=== PATIENT | female | born 1970 | race Caucasian/White ===

== ENCOUNTER → 2016-12-18 | Outpatient (REF) | payer OTHER ==
[2016-12-18 14:33] LABS: PERCENT SATURATION 18.2 % (13.2-45.0)
== END ==
LOC: M LAB REF 08:40
PROVIDERS: ATTEND Internal Medicine
DX: D50.9 Iron deficiency anemia, unspecified (principal); N92.4 Excessive bleeding in the premenopausal period

== ENCOUNTER → 2016-12-19 | Outpatient (CLI) | payer OTHER ==
--- NOTE | 2016-12-20 14:31 | REP ---
Clinical: Menorrhagia . Technique: Transabdominal pelvic ultrasound followed by transvaginal examination for better evaluation of the endometrium and adnexa with color Doppler evaluation of the ovaries. Findings: Bladder is unremarkable and measures 8.4 x 5.5 x 5.7 cm . Heterogeneous anteverted uterus measures 8.9 x 3.9 x 5.0 cm . The endometrial complex measures 8.8 mm thickness. No discrete uterine or endometrial abnormalities are appreciated. Left ovary is normal in appearance and vascularity without evidence for torsion and measures 2.1 x 2.0 x 1.0 cm; RI = 0.50. The right ovary is not visualized. No pelvic fluid or adnexal mass lesion noted. Impression: 1. Normal appearance to the uterus and left ovary. 2. Right ovary not visualized. 3. No pelvic fluid or adnexal mass lesion. Signed by Sudhir Bailey MD 12/19/2016 10:45 P
== END ==
LOC: M RAD 10:23
PROVIDERS: ATTEND Internal Medicine
DX: N92.0 Excessive and frequent menstruation with regular cycle (principal)

== ENCOUNTER 2018-02-16 12:34 | Emergency (ER) | payer OTHER ==
[2018-02-16] MEDS: ONDANSETRON 4 MG ORAL DISINTEGRATING TAB (Q0162 PER 1MG) PO (15:13)
[2018-02-16] MEDS: NORCO, ANEXSIA 5/325MG TABLET (HYDROcodone/ACETAMINOPHEN) PO (15:14)
== END 2018-02-16 16:57 | disposition home or self-care (01) ==
LOC: M ED 12:34
DX: S22.42XA Multiple fractures of ribs, left side, initial encounter for closed fracture (principal); R11.2 Nausea with vomiting, unspecified; W18.09XA Striking against other object with subsequent fall, initial encounter; Y92.098 Other place in other non-institutional residence as the place of occurrence of the external cause; Y93.K9 Activity, other involving animal care; Y99.9 Unspecified external cause status; D64.9 Anemia, unspecified; Z72.0 Tobacco use; Z79.899 Other long term (current) drug therapy
CPT/HCPCS: Q0162

== ENCOUNTER → 2018-02-16 | Outpatient (CLI) | payer OTHER | LOC: M RAD 08:13 | DX: Z12.31 Encounter for screening mammogram for malignant neoplasm of breast (principal) | CPT/HCPCS: 77067 ==

== ENCOUNTER → 2018-04-15 | Outpatient (CLI) | payer OTHER ==
[~2018-04-15] MED LIST: FERR32TA PO; FLUO20CA19 PO; IBUP-1022 PO; NORCOTAB PO; ZOFR4TAB14 PO
[2018-04-15 10:21] LABS: BASO # 0.1 10^3/uL (0.0-0.2); BASO % 1.2 % (0.0-1.0); EOS # 0.4 10^3/uL (0.0-0.50); EOS % 7.4 % (0.0-3.0); HEMATOCRIT 42.1 % (36.0-47.0); LYMPH # 1.3 10^3/uL (1.5-4.5); LYMPH % 25.2 % (24.0-44.0); MEAN CORPUSCULAR HEMOGLOBIN 26.8 pg (27.0-33.0); MEAN CORPUSCULAR HGB CONC 33.3 g/dl (32.0-36.5); MEAN CORPUSCULAR VOLUME 80.7 fl (80.0-96.0); MONO # 0.3 10^3/uL (0.0-0.8); MONO % 6.6 % (0.0-5.0); PLATELET COUNT, AUTOMATED 272 10^3/uL (150-450); RED BLOOD COUNT 5.22 10^6/uL (4.00-5.40)
[2018-04-15 10:37] LABS: BLOOD UREA NITROGEN 15 MG/DL (7-18); CALCIUM LEVEL 8.7 MG/DL (8.5-10.1); CARBON DIOXIDE LEVEL 28 MEQ/L (21-32); CHLORIDE LEVEL 105 MEQ/L (98-107); CHOLESTEROL LEVEL 220 MG/DL (<200); CHOLESTEROL RISK RATIO 3.793 (<5); CREATININE FOR GFR 0.68 MG/DL (0.55-1.30); FERRITIN 26 NG/ML (8-252); GLOMERULAR FILTRATION RATE > 60.0 (>58); GLUCOSE, FASTING 95 MG/DL (70-100); HDL CHOLESTEROL 58 MG/DL (>40); IRON (FE) 49 UG/DL (50-170); LDL CHOLESTEROL 148 MG/DL (<100); NON-HDL-C 162 MG/DL; PERCENT SATURATION 18.6 % (13.2-45.0); POTASSIUM SERUM 4.7 MEQ/L (3.5-5.1); SODIUM LEVEL 139 MEQ/L (136-145); TOTAL IRON BINDING CAPACITY 264 UG/DL (250-450); TRIGLYCERIDES LEVEL 71 MG/DL (<150)
== END ==
LOC: M WUC 08:48
PROVIDERS: ATTEND Physician Assistant
DX: D50.9 Iron deficiency anemia, unspecified (principal); R53.83 Other fatigue

== ENCOUNTER → 2018-07-23 | Outpatient (CLI) | payer OTHER ==
[~2018-07-23] MED LIST changes: +HYDR-3715 PO; -NORCOTAB PO
--- NOTE | 2018-07-23 16:40 | REP ---
MAXILLOFACIAL CT WITHOUT CONTRAST: HISTORY: Chronic maxillary sinusitis. Bilateral Osmel cells are present. The patient is status post bilateral partial middle nasal turbinectomy. The middle and inferior nasal turbinates are partially paradoxical. There is mild deviation of the nasal septum to the left. The cribriform plate, medial cabrera of the orbits and optic canals are intact. The carotid canals form a segment of the posterolateral cabrera of the sphenoid sinus. The sphenoid sinus septum inserts into the right internal carotid canal wall. IMPRESSION: 1. Sinus mucosal thickening as described above. 2. The patient is status post bilateral partial middle nasal turbinectomy. Electronically Signed by John Enriquez MD 07/23/2018 04:42 P
== END ==
LOC: M RAD 16:04
PROVIDERS: ATTEND Otolaryngology
DX: J32.0 Chronic maxillary sinusitis (principal); Z98.890 Other specified postprocedural states

== ENCOUNTER → 2018-10-13 | Outpatient (REF) | payer OTHER | LOC: M LAB REF 10:11 | PROVIDERS: ATTEND Physician Assistant | DX: J02.9 Acute pharyngitis, unspecified (principal) ==

== ENCOUNTER → 2019-03-06 | Outpatient (CLI) | payer OTHER ==
[2019-03-06 13:11] LABS: BASO # 0.1 10^3/uL (0.0-0.2); BASO % 1.1 % (0.0-1.0); EOS # 0.3 10^3/uL (0.0-0.5); EOS % 6.1 % (0.0-3.0); HEMATOCRIT 42.3 % (36.0-47.0); HEMOGLOBIN 13.9 g/dl (12.0-15.5); LYMPH # 1.2 10^3/uL (1.5-5.0); MEAN CORPUSCULAR HEMOGLOBIN 27.3 pg (27.0-33.0); MEAN CORPUSCULAR HGB CONC 32.9 g/dl (32.0-36.5); MEAN CORPUSCULAR VOLUME 82.9 fl (80.0-96.0); MONO # 0.3 10^3/uL (0.0-0.8); MONO % 7.2 % (0.0-5.0); NEUTROPHILS # 2.7 10^3/uL (1.5-8.5); NEUTROPHILS % 57.9 % (36.0-66.0); PLATELET COUNT, AUTOMATED 245 10^3/uL (150-450); WHITE BLOOD COUNT 4.6 10^3/uL (4.0-10.0)
[2019-03-06 13:28] LABS: ALT/SGPT 20 U/L (12-78); BLOOD UREA NITROGEN 13 MG/DL (7-18); CALCIUM LEVEL 8.8 MG/DL (8.5-10.1); CARBON DIOXIDE LEVEL 31 MEQ/L (21-32); CHLORIDE LEVEL 106 MEQ/L (98-107); CREATININE FOR GFR 0.65 MG/DL (0.55-1.30); GLOMERULAR FILTRATION RATE > 60.0 (>51); GLUCOSE, FASTING 79 MG/DL (70-100); POTASSIUM SERUM 4.5 MEQ/L (3.5-5.1); SODIUM LEVEL 141 MEQ/L (136-145)
[2019-03-06 13:29] LABS: ALBUMIN 3.7 GM/DL (3.2-5.2); BILIRUBIN,TOTAL 0.9 MG/DL (0.2-1.0); FERRITIN 29 NG/ML (8-252); IRON (FE) 74 UG/DL (50-170); PERCENT SATURATION 27.9 % (13.2-45.0); THYROID STIMULATING HORMONE 0.932 uIU/ML (0.358-3.740); TOTAL IRON BINDING CAPACITY 265 UG/DL (250-450); TOTAL PROTEIN 6.7 GM/DL (6.4-8.2)
[2019-03-08 10:45] LABS: FOLATE 19.1 NG/ML; VITAMIN B12 LEVEL 379 PG/ML
== END ==
LOC: M WUC 08:02
PROVIDERS: ATTEND Physician Assistant
DX: R53.83 Other fatigue (principal); D50.9 Iron deficiency anemia, unspecified

== ENCOUNTER → 2019-03-17 | Outpatient (CLI) | payer OTHER ==
--- NOTE | 2019-03-17 09:15 | REPMRS ---
Patient History The patient states she had a clinical breast exam in 2018. Family history of unknown cancer at age 60 in mother, prostate cancer at age 50 or over in father, breast cancer at age 50 or over in maternal grandmother. Took hormonal contraceptives for 15 years. 3D TOMOSYNTHESIS WAS PERFORMED. The Nataliia Flores lifetime risk for breast cancer is 19.0%. Digital Mammo Screening Bilat: March 17, 2019 - Exam #: [id number] Bilateral CC and MLO view(s) were taken. Technologist: Liliana Prabhakar, Technologist Prior study comparison: February 16, 2018, bilateral digital mammo screening bilat performed at [facility]. February 12, 2017, bilateral digital mammo screening bilat performed at [facility]. FINDINGS: The breast tissue is heterogeneously dense. This may lower the sensitivity of mammography. There has been no change in the appearance of the mammogram from the prior studies. There is a moderate amount of residual fibroglandular tissue which is fairly symmetric. There is no interval development of dominant mass, areas of architectural distortion, or clustered microcalcification typical of malignancy. Assessment: BI-RADS/ACR category 1 mammogram. Negative Mammogram. Recommendation Routine screening mammogram in 1 year (for women over age 40). This mammogram was interpreted with the aid of an FDA-approved computer-aided dectection system. Electronically Signed By: Arnol Henning MD 03/17/19 0915
== END ==
LOC: M RAD 08:28
PROVIDERS: ATTEND Physician Assistant
DX: Z12.31 Encounter for screening mammogram for malignant neoplasm of breast (principal); Z80.3 Family history of malignant neoplasm of breast

== ENCOUNTER 2019-11-17 11:40 | Day surgery (SDC) | payer OTHER ==
[~2019-11-17 11:40] MED LIST changes: -FLUO20CA19 PO; +FLUO20CA22 PO
[2019-11-17] MEDS ORDERED: propofoL 500 MG/50 ML VIAL ONE (11:41)
--- NOTE | 2019-12-29 11:26 | ROOR ---
Patient Name: Abby Youssef Procedure Date: 11/17/2019 12:10 PM Date of : 1970 Age: 49 Room: [facility] Gender: Female Note Status: [employer] Override Procedure: Total Colonoscopy to Cecum + Biopsy Polypectomy Indications: Screening for colorectal malignant neoplasm Providers: Yan Wan MD Referring MD: CLEMENCIA Lanza Requesting Provider: Medicines: Monitored Anesthesia Care Complications: No immediate complications. Procedure: Pre-Anesthesia Assessment: - The heart rate, respiratory rate, oxygen saturations, blood pressure, adequacy of pulmonary ventilation, and response to care were monitored throughout the procedure. The Colonoscope was introduced through the anus and advanced to the cecum, identified by appendiceal orifice and ileocecal valve. The colonoscopy was performed without difficulty. The patient tolerated the procedure well. The quality of the bowel preparation was excellent. Findings: The perianal and digital rectal examinations were normal. Non-bleeding internal hemorrhoids were found during retroflexion. The hemorrhoids were small and Grade I (internal hemorrhoids that do not prolapse). Scattered small-mouthed diverticula were found in the recto-sigmoid colon, sigmoid colon and descending colon. A small polyp was found in the rectum. The polyp was sessile. The polyp was removed with a cold biopsy forceps. Resection and retrieval were complete. The exam was otherwise without abnormality on direct and retroflexion views. Impression: - Non-bleeding internal hemorrhoids. - Diverticulosis in the recto-sigmoid colon, in the sigmoid colon and in the descending colon. - One small polyp in the rectum, removed with a cold biopsy forceps. Resected and retrieved. - The examination was otherwise normal on direct and retroflexion views. - The exam was otherwise normal to the cecum. Recommendation: - Patient has a contact number available for emergencies. The signs and symptoms of potential delayed complications were discussed with the patient. Return to normal activities tomorrow. Written discharge instructions were provided to the patient. - Discharge patient to home. - High fiber diet. - Await pathology results. - Telephone GI clinic for pathology results in 1 week. - Repeat colonoscopy in 10 years for screening purposes. - Return to referring physician. - Continue present medications. - The findings and recommendations were discussed with the patient. Yan Wan MD Yan Wan MD 11/17/2019 12:28:25 PM Number of Addenda: 0 Note Initiated On: 11/17/2019 12:10 PM Estimated Blood Loss: Estimated blood loss: none.
== END 2019-11-17 13:05 | disposition home or self-care (01) ==
LOC: M OPP 11:40
PROVIDERS: ATTEND Internal Medicine Gastroenterology
DX: Z12.11 Encounter for screening for malignant neoplasm of colon (principal); K64.0 First degree hemorrhoids; K62.1 Rectal polyp; K57.30 Diverticulosis of large intestine without perforation or abscess without bleeding
CPT/HCPCS: 45380; 88305; U0002

== ENCOUNTER → 2020-02-27 | Outpatient (CLI) | payer OTHER ==
[2020-02-27 12:23] LABS: BASO # 0.1 10^3/uL (0.0-0.2); BASO % 1.4 % (0.0-1.0); EOS # 0.4 10^3/uL (0.0-0.5); EOS % 9.3 % (0.0-3.0); HEMOGLOBIN 13.6 g/dl (12.0-15.5); LYMPH % 23.8 % (24.0-44.0); MEAN CORPUSCULAR HEMOGLOBIN 26.3 pg (27.0-33.0); MEAN CORPUSCULAR HGB CONC 31.6 g/dl (32.0-36.5); MEAN CORPUSCULAR VOLUME 83.2 fl (80.0-96.0); MONO # 0.4 10^3/uL (0.0-0.8); MONO % 8.3 % (0.0-5.0); NEUTROPHILS # 2.5 10^3/uL (1.5-8.5); NEUTROPHILS % 56.7 % (36.0-66.0); PLATELET COUNT, AUTOMATED 267 10^3/uL (150-450); RED BLOOD COUNT 5.17 10^6/uL (4.00-5.40); WHITE BLOOD COUNT 4.3 10^3/uL (4.0-10.0)
[2020-02-27 12:53] LABS: BLOOD UREA NITROGEN 13 MG/DL (7-18); CREATININE FOR GFR 0.76 MG/DL (0.55-1.30); GLUCOSE, FASTING 83 MG/DL (70-100)
[2020-02-27 12:54] LABS: ALBUMIN 3.9 GM/DL (3.2-5.2); ALT/SGPT 18 U/L (12-78); BILIRUBIN,TOTAL 0.8 MG/DL (0.2-1.0); CALCIUM LEVEL 8.8 MG/DL (8.5-10.1); CARBON DIOXIDE LEVEL 31 MEQ/L (21-32); CHLORIDE LEVEL 106 MEQ/L (98-107); FERRITIN 59 NG/ML (8-252); GLOMERULAR FILTRATION RATE > 60.0 (>51); IRON (FE) 65 UG/DL (50-170); PERCENT SATURATION 24.7 % (13.2-45.0); POTASSIUM SERUM 4.6 MEQ/L (3.5-5.1); SODIUM LEVEL 139 MEQ/L (136-145); THYROID STIMULATING HORMONE 0.594 uIU/ML (0.358-3.740); TOTAL IRON BINDING CAPACITY 263 UG/DL (250-450); TOTAL PROTEIN 6.5 GM/DL (6.4-8.2)
[2020-02-28 10:13] LABS: VITAMIN B12 LEVEL 427 PG/ML
[2020-02-28 10:14] LABS: FOLATE 18.1 NG/ML
== END ==
LOC: M WUC 08:11
PROVIDERS: ATTEND Family Medicine
DX: R53.83 Other fatigue (principal); D50.9 Iron deficiency anemia, unspecified

== ENCOUNTER 2020-03-09 16:18 | Day surgery (SDC) | payer OTHER ==
[~2020-03-09] VITALS: Ht 162.6 cm; Wt 93.2 kg
[2020-03-09] MEDS ORDERED: KETOROLAC 30 MG/ML 1ML VIAL IV ONE (18:45)
[2020-03-09] MEDS ORDERED: ONDANSETRON 4MG/2ML VIAL IV ONE (18:45)
[2020-03-09 18:46] LABS: BASO # 0.1 10^3/uL (0.0-0.2); BASO % 0.5 % (0.0-1.0); EOS # 0.2 10^3/uL (0.0-0.5); EOS % 1.3 % (0.0-3.0); HEMATOCRIT 43.8 % (36.0-47.0); HEMOGLOBIN 14.9 g/dl (12.0-15.5); LYMPH # 1.1 10^3/uL (1.5-5.0); LYMPH % 8.9 % (24.0-44.0); MEAN CORPUSCULAR HEMOGLOBIN 27.5 pg (27.0-33.0); MONO # 0.6 10^3/uL (0.0-0.8); MONO % 4.7 % (0.0-5.0); NEUTROPHILS % 84.1 % (36.0-66.0); PLATELET COUNT, AUTOMATED 302 10^3/uL (150-450); RED BLOOD COUNT 5.41 10^6/uL (4.00-5.40); WHITE BLOOD COUNT 11.9 10^3/uL (4.0-10.0)
[2020-03-09 19:05] LABS: ALBUMIN 4.4 GM/DL (3.2-5.2); ALT/SGPT 18 U/L (12-78); BILIRUBIN,DIRECT 0.3 MG/DL (0.0-0.2); BILIRUBIN,TOTAL 1.2 MG/DL (0.2-1.0); BLOOD UREA NITROGEN 12 MG/DL (7-18); CALCIUM LEVEL 9.3 MG/DL (8.5-10.1); CARBON DIOXIDE LEVEL 28 MEQ/L (21-32); CHLORIDE LEVEL 101 MEQ/L (98-107); CREATININE FOR GFR 0.71 MG/DL (0.55-1.30); GLOMERULAR FILTRATION RATE > 60.0 (>51); GLUCOSE, FASTING 95 MG/DL (70-100); LIPASE 82 U/L (73-393); POTASSIUM SERUM 4.2 MEQ/L (3.5-5.1); SODIUM LEVEL 134 MEQ/L (136-145); TOTAL PROTEIN 7.5 GM/DL (6.4-8.2)
--- NOTE | 2020-03-09 20:04 | REPVR ---
PROCEDURE INFORMATION: Exam: US Abdomen, Limited; Right Upper Quadrant Exam date and time: 03/09/2020 7:26 PM Age: 49 years old Clinical indication: Abdominal pain; Epigastric; Additional info: Ruq pain TECHNIQUE: Imaging protocol: US abdomen. Real time ultrasound with image documentation. Limited exam focused on the right upper quadrant. COMPARISON: No relevant prior studies available. FINDINGS: Liver: There is uniform echogenicity of the liver. There is a small cyst of the liver measuring approximately 1 cm. Gallbladder: The gallbladder is fluid filled with no definite evidence of gallstones. There is a tiny echogenic focus along the anterior aspect of the gallbladder consistent with a tiny cholesterol polyp. The gallbladder wall measures 3 mm. Common bile duct: The common bile duct is normal in size measuring 5 mm. Pancreas: The head and body of the pancreas do not appear enlarged. The tail of the pancreas is obscured by bowel gas. Right kidney: The right kidney measures 11.6 cm in length with no evidence of hydronephrosis. IMPRESSION: No evidence of gallstones. Electronically signed by: Zay Reyna On 03/09/2020 20:03:44 PM
[2020-03-09] MEDS ORDERED: ISOVUE-370 76% 100ML VIAL As Ordered ONE (20:38)
--- NOTE | 2020-03-09 21:36 | REPVR ---
PROCEDURE INFORMATION: Exam: CT Abdomen And Pelvis With Contrast Exam date and time: 03/09/2020 9:04 PM Age: 49 years old Clinical indication: Abdominal pain; Localized; Right upper quadrant (ruq); Additional info: Ruq pain TECHNIQUE: Imaging protocol: Computed tomography of the abdomen and pelvis with intravenous contrast. Radiation optimization: All CT scans at this facility use at least one of these dose optimization techniques: automated exposure control; mA and/or kV adjustment per patient size (includes targeted exams where dose is matched to clinical indication); or iterative reconstruction. Contrast material: ISOVUE 370; Contrast volume: 100 ml; Contrast route: INTRAVENOUS (IV); COMPARISON: US PELVIC NON-OB COMPLETE 12/19/2016 10:31 AM FINDINGS: Lungs: The lung bases appear clear. Liver: There is a small cyst right lobe of the liver. There is uniform enhancement through the liver. Gallbladder and bile ducts: Normal gallbladder. Normal common bile duct. Pancreas: Normal pancreas. Spleen: Normal appearing spleen. Adrenal glands: Normal adrenal glands. Kidneys and ureters: There is enhancement of both kidneys. There is no evidence of hydronephrosis. Stomach and bowel: The cecum is at the right pelvis. The appendix is posterolateral in position and severely thickened. There is a prominent amount of inflammation surrounding the appendix and all consistent with acute changes of appendicitis. There are diverticula of the right colon abutting the area of inflammation. Intraperitoneal space: There is no evidence of pneumoperitoneum. There is no evidence of free fluid in the abdomen or the pelvis. Vasculature: There is opacification of the aorta which appears intact. There is opacification of the SMV and the SMA. Lymph nodes: There are small lymph nodes along the course of the aorta. Urinary bladder: Normal urinary bladder. Reproductive: There is an IUD within the uterus. Bones/joints: Unremarkable. No acute fracture. Soft tissues: There is a small umbilical hernia with protrusion of 2.5 cm of mesenteric fat. IMPRESSION: 1. The study is positive for acute appendicitis. The cecum and appendix is in the upper right pelvis. A thickened appendix is identified posterolateral to the cecum with significant surrounding inflammation and all consistent with acute changes appendicitis. 2. Small umbilical hernia with mesenteric fat. Electronically signed by: Zay Reyna On 03/09/2020 21:36:39 PM
[2020-03-09] MEDS ORDERED: NS 1,000 ML IV ONE (22:00)
[2020-03-09] MEDS ORDERED: PIPERACILLIN/TAZOBACTAM SOD 3.375 GM in D5W MINI-BAG PLUS 50 ML IV ONE (22:00)
[2020-03-09] MEDS ORDERED: FLUO20CA22 PO (22:09)
[2020-03-09] MEDS ORDERED: VITMTA PO (22:09)
[2020-03-09] MEDS ORDERED: IBUP-1764 PO (22:09)
[2020-03-09] MEDS ORDERED: FERR325T3 PO (22:09)
[2020-03-09] MEDS ORDERED: MIDAZOLAM INJ 2MG/2ML VIAL (J2250 PER 1MG) As Ordered ONE (23:42)
[2020-03-09] MEDS ORDERED: fentaNYL 100 MCG/2 ML INJECTION (J3010) As Ordered ONE (23:42)
[2020-03-09] MEDS ORDERED: LIDOCAINE 2% 100MG/5ML SDV (FOR ANES.) As Ordered ONE (23:44)
[2020-03-09] MEDS ORDERED: SUGAMMADEX SODIUM 500 MG/5 ML VIAL (BRIDION) As Ordered ONE (23:44)
[2020-03-09] MEDS ORDERED: propofoL 200 MG/20 ML VIAL As Ordered ONE (23:44)
[2020-03-09] MEDS ORDERED: ONDANSETRON 4MG/2ML VIAL As Ordered ONE (23:44)
[2020-03-09] MEDS ORDERED: dexameTHASONE 4 MG/ML 1ML VIAL (J1100 PER 1MG) As Ordered ONE (23:44)
[2020-03-09] MEDS ORDERED: ROCURONIUM BROMIDE 50 MG/5 ML VIAL As Ordered ONE (23:44)
[2020-03-10] VITALS (8 sets, daily range): BP systolic 111–142; BP diastolic 68–84
[2020-03-10] MEDS ORDERED: PHENYLephrine HCL 500 MCG/5 ML (100MCG/ML) SYRINGE (J2370) As Ordered ONE (00:20)
[2020-03-10] MEDS ORDERED: ACETAMINOPHEN 1000MG 100ML IV BTL (OFIRMEV) (J0131 PER 10MG) As Ordered ONE (00:20)
[2020-03-10] MEDS ORDERED: ePHEDrine SULFATE 25 MG/5 ML(5MG/ML) SYRINGE As Ordered ONE (00:20)
[2020-03-10] MEDS ORDERED: LIDOCAINE W/EPINEPHRINE 1% 20ML VIAL As Ordered ONE (00:26)
[2020-03-10] MEDS ORDERED: BUPIVACAINE HCL 0.25% 30ML VIAL As Ordered ONE (00:26)
[2020-03-10] MEDS ORDERED: NS 1,000 ML IV SCH (01:25)
[2020-03-10] MEDS ORDERED: MORPHINE 2 MG/ML 1ML VIAL (J2270) IV PRN ×2 (01:30)
[2020-03-10] MEDS ORDERED: NORCO, ANEXSIA 5/325MG TABLET (HYDROcodone/ACETAMINOPHEN) PO PRN ×2 (01:30)
[2020-03-10] MEDS ORDERED: ONDANSETRON 4MG/2ML VIAL IV PRN ×2 (01:30→01:45)
[2020-03-10] MEDS: fentaNYL 100 MCG/2 ML INJECTION (J3010) IV PRN ×4 (01:43→01:59)
[2020-03-10] MEDS: KETOROLAC 30 MG/ML 1ML VIAL IV SCH ×3 (01:44→13:46)
[2020-03-10] MEDS ORDERED: MEPERIDINE INJ 25 MG/ML VIAL (J2175) IV PRN (01:45)
[2020-03-10] MEDS ORDERED: LR 1,000 ML IV SCH (01:45)
[2020-03-10] MEDS ORDERED: oxyCODONE 5MG TAB PO PRN (01:45)
[2020-03-10] MEDS ORDERED: METOCLOPRAMIDE INJ 10MG/2ML VIAL (J2765 PER 1) IV PRN (01:45)
[2020-03-10] MEDS: PIPERACILLIN/TAZOBACTAM SOD 3.375 GM in D5W MINI-BAG PLUS 50 ML IV SCH ×2 (05:13→12:38)
[2020-03-10] MEDS ORDERED: FLUoxetine 20 MG CAP PO SCH (09:00)
--- NOTE | 2020-04-17 08:58 | RO ---
OPERATIVE NOTE DATE OF OPERATION: 03/09/2020 PREOPERATIVE DIAGNOSIS: Acute appendicitis. POSTOPERATIVE DIAGNOSES: 1. Acute appendicitis. 2. Umbilical hernia. PROCEDURES: 1. Laparoscopic appendectomy. 2. Umbilical hernia repair. SURGEON: Rigoberto Dorantes Jr, MD ANESTHESIA: General endotracheal anesthesia. EBL: Minimal. FLUIDS: Crystalloid. BRIEF PROCEDURE SUMMARY: The patient was brought to the operating room and was given general anesthesia. After adequate anesthesia and preoperative antibiotics were given, the patient was prepped and draped in usual sterile fashion. Periumbilical incision was made with skin knife. There was an umbilical hernia present and using this site I did go down to the fascial level at the umbilicus and the hernia was transected at the level of the fascia and the preperitoneal fat was removed in this area. 12 mm trocar was placed into the abdominal cavity with blunt end in and it fit quite nicely in this fascial defect and the abdomen was insufflated to 15 mmHg. Suprapubic and left lower quadrant 5 mm trocars were placed and under direct visualization the appendix was seen with the patient in the Trendelenburg position left side down. The mesentery of the appendix was taken with the Harmonic scalpel all the way to the base of the appendix/cecal wall. Once this was nicely dissected out the base of the appendix/cecum was transected using JEAN PAUL stapler. This was placed in an Endo Catch bag and brought out through the umbilicus. The right lower quadrant pelvis was copiously irrigated until clear. All trocars were removed under direct visualization. #0 Vicryl was used to close the fascia at the umbilicus with two [id number] #0 Vicryl to bring this together this fascial defect at the hernia site and the dermis was brought together with 4-0 Vicryl, subcuticulars were placed in all three incisions, Steri-Strips and dry, sterile dressing was applied. The patient was awakened from her anesthesia and brought to the recovery room awake, alert and hemodynamically stable. Sponge and needle counts correct x2.
== END 2020-03-10 13:58 | disposition home or self-care (01) ==
LOC: M ED 16:18 → M SDC 16:19 → M MSPAV 03-10 02:04 → M SDC 03-10 13:58
PROVIDERS: ATTEND Surgery
DX: K35.80 Unspecified acute appendicitis (principal); K42.9 Umbilical hernia without obstruction or gangrene; M12.9 Arthropathy, unspecified
CPT/HCPCS: 44970; 49585; 74177; 76705; 80048; 80076; 83690; 85025; 88302; 88304; 96365; 96366; 96375; 96376; 99284; J0131; J1100; J1885; J2250; J2370; J2405; J2543; J3010; Q9967; U0002

== ENCOUNTER → 2020-03-23 | Outpatient (CLI) | payer OTHER ==
[~2020-03-23] MED LIST changes: +FERR325T3 PO; +IBUP-1764 PO; +VITMTA PO
--- NOTE | 2020-03-23 12:59 | REPMRS ---
Patient History The patient states she had a clinical breast exam in October 2019. Family history of unknown cancer at age 60 in mother, prostate cancer at age 50 or over in father, breast cancer at age 50 or over in maternal grandmother. Took hormonal contraceptives for 15 years. Digital Woman Screen Mammo: March 23, 2020 - Exam #: [id number] Bilateral CC and MLO view(s) were taken. Technologist: Liliana Prabhakar, Technologist Prior study comparison: March 17, 2019, bilateral digital mammo screening bilat, performed at [facility]. February 16, 2018, bilateral digital mammo screening bilat, performed at [facility]. February 12, 2017, bilateral digital mammo screening bilat, performed at [facility]. FINDINGS: There are scattered fibroglandular densities. The Volpara volumetric breast density category is:B. There has been no change in the appearance of the mammogram from the prior studies. There is a mild amount of scattered fibroglandular density which is fairly symmetric. There is no interval development of dominant mass, architectural distortion, or grouped microcalcification suggestive of malignancy. 3-D tomosynthesis shows no additional findings. Assessment: BI-RADS/ACR category 1 mammogram. Negative Mammogram. Recommendation Routine screening mammogram of both breasts in 1 year (for women over age 40). This patient's [facility] Lifetime Breast Cancer Risk is estimated at 18.6 %. This mammogram was interpreted with the aid of an FDA-approved computer-aided dectection system. Electronically Signed By: Luigi Joshua MD 03/23/20 8422
== END ==
LOC: M WHC 10:24
PROVIDERS: ATTEND Family Medicine
DX: Z12.31 Encounter for screening mammogram for malignant neoplasm of breast (principal); Z80.3 Family history of malignant neoplasm of breast; Z80.42 Family history of malignant neoplasm of prostate

== ENCOUNTER → 2020-04-18 | Outpatient (REF) | payer OTHER | LOC: M SFHCWAGY 13:17 | PROVIDERS: ATTEND Nurse Practitioner Women's Health | DX: R87.610 Atypical squamous cells of undetermined significance on cytologic smear of cervix (ASC-US) (principal); Z11.51 Encounter for screening for human papillomavirus (HPV) | CPT/HCPCS: 87624; G0123 ==

== ENCOUNTER → 2020-10-02 | Outpatient (CLI) | payer OTHER ==
[~2020-10-02] MED LIST changes: +PROHANCE 279.3MG/ML 15ML VIAL As Ordered ONE; +PROHANCE 279.3MG/ML 5ML VIAL As Ordered ONE
--- NOTE | 2020-10-02 13:42 | REP ---
INDICATION: HIGH RISK FOR BREAST CA. COMPARISON: MRI 11/16/2012, mammogram 03/23/2020. TECHNIQUE: Three Abi MRI imaging was performed with a dedicated breast coil. Axial, coronal, and sagittal T1 and T2 weighted scans were obtained with and without fat saturation in the usual fashion. The study includes dynamically acquired post gadolinium-enhanced imaging with image subtraction. Maximum intensity projection and multi planar reformation imaging is included as well. This study is interpreted with the aid of TrustAlert, an FDA approved computer aided detection (CAD) software program, on a dedicated breast MRI workstation. The gadolinium enhancement dose is 18 mL of intravenous ProHance. FINDINGS: There is mild to moderate fibroglandular tissue bilaterally. There is no significant cystic change in either breast. There is no significant axillary adenopathy bilaterally. There is mild background parenchymal enhancement. There is no suspicious enhancing mass or morphologic abnormality. IMPRESSION: BI-RADS category 1, negative bilateral breast MRI. No suspicious enhancing mass or morphologic abnormality. <Electronically signed by Arnol Henning > 10/02/20 0701
== END ==
LOC: M RAD 12:00
PROVIDERS: ATTEND Nurse Practitioner Women's Health
DX: Z12.31 Encounter for screening mammogram for malignant neoplasm of breast (principal)

== ENCOUNTER → 2020-12-06 | Outpatient (CLI) | payer OTHER ==
[~2020-12-06] MED LIST changes: -PROHANCE 279.3MG/ML 15ML VIAL As Ordered ONE; -PROHANCE 279.3MG/ML 5ML VIAL As Ordered ONE
[2020-12-06 10:29] LABS: HEMATOCRIT 43.1 % (36.0-47.0); HEMOGLOBIN 14.8 g/dl (12.0-15.5); MEAN CORPUSCULAR HEMOGLOBIN 28.1 pg (27.0-33.0); MEAN CORPUSCULAR HGB CONC 34.3 g/dl (32.0-36.5); MEAN CORPUSCULAR VOLUME 81.9 fl (80.0-96.0); PLATELET COUNT, AUTOMATED 252 10^3/uL (150-450); RED BLOOD COUNT 5.26 10^6/uL (4.00-5.40); WHITE BLOOD COUNT 5.2 10^3/uL (4.0-10.0)
[2020-12-06 11:11] LABS: ALT/SGPT 23 U/L (12-78); BILIRUBIN,TOTAL 1.1 MG/DL (0.2-1.0); BLOOD UREA NITROGEN 11 MG/DL (7-18); CALCIUM LEVEL 8.9 MG/DL (8.5-10.1); CARBON DIOXIDE LEVEL 28 MEQ/L (21-32); CHLORIDE LEVEL 106 MEQ/L (98-107); CHOLESTEROL LEVEL 222 MG/DL (<200); CHOLESTEROL RISK RATIO 4.188 (<5); CREATININE FOR GFR 0.72 MG/DL (0.55-1.30); FERRITIN 58 NG/ML (8-252); FREE T4 1.02 NG/DL (0.76-1.46); GLOMERULAR FILTRATION RATE > 60.0 (>51); GLUCOSE, FASTING 85 MG/DL (70-100); HDL CHOLESTEROL 53 MG/DL (>40); LDL CHOLESTEROL 148 MG/DL (<100); NON-HDL-C 169 MG/DL; POTASSIUM SERUM 4.5 MEQ/L (3.5-5.1); SODIUM LEVEL 138 MEQ/L (136-145); THYROID STIMULATING HORMONE 0.459 uIU/ML (0.358-3.740); TOTAL PROTEIN 6.7 GM/DL (6.4-8.2); TRIGLYCERIDES LEVEL 107 MG/DL (<150)
[2020-12-06 11:12] LABS: TOTAL 25(OH) VITAMIN D 31.3 NG/ML (30.0-100.0)
== END ==
LOC: M WUC 08:27
PROVIDERS: ATTEND Nurse Practitioner Family
DX: E78.00 Pure hypercholesterolemia, unspecified (principal); F41.1 Generalized anxiety disorder; R53.83 Other fatigue

== ENCOUNTER → 2021-02-22 | Outpatient (CLI) | payer OTHER ==
--- NOTE | 2021-02-22 14:24 | REP ---
INDICATION: IMPINGEMENT SYNDROME OF LT SHOULDER. COMPARISON: None. TECHNIQUE: Coronal oblique T1 and fat suppressed T2. Sagittal oblique fat suppressed T2. Axial [id number] and T2 FLASH. FINDINGS: There is moderate hypertrophic degenerative change seen involving the acromioclavicular joint. There is T2 hyper signal seen within and on both sides of the joint. There is patchy and linear T2 hyper signal seen throughout the supraspinatus tendon without evidence of musculotendinous retraction or significant supraspinatus muscle atrophy. Subscapularis, infraspinatus, and teres minor tendons are intact the biceps tendon resides within the bicipital groove. There is no evidence of a glenohumeral joint effusion or significant amount of fluid in the subcoracoid recess. The coracohumeral and coracoacromial ligaments appear thickened. The acromion process is type 2. Tiny T2 hyper signal foci are seen in the superolateral humeral head consistent with tiny cysts. There is linear hyper signal seen in the superior labrum which might be anterior to posterior. IMPRESSION: 1. 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 2. There is supraspinatus tendinitis/tendinosis as described above. 3. There is labral signal abnormality as described above concerning for a labral tear. This could be better evaluated with shoulder MRI arthrography if clinically relevant. 4. Coracohumeral and coracoacromial ligamentous thickening consistent with the clinical diagnosis of impingement syndrome. 5. Other findings as described above. <Electronically signed by Wilber Cooper > 02/22/21 [id number]
== END ==
LOC: M PLAIMG 13:00
PROVIDERS: ATTEND Orthopaedic Surgery
DX: M75.42 Impingement syndrome of left shoulder (principal)

== ENCOUNTER → 2021-03-30 | Outpatient (CLI) | payer OTHER ==
[2021-03-30 19:38] LABS: RED BLOOD COUNT 4.63 10^6/uL (4.00-5.40); WHITE BLOOD COUNT 6.2 10^3/uL (4.0-10.0)
[2021-03-30 19:39] LABS: BASO # 0.1 10^3/uL (0.0-0.2); BASO % 1.1 % (0.0-1.0); EOS # 0.5 10^3/uL (0.0-0.5); EOS % 7.2 % (0.0-3.0); HEMATOCRIT 39.1 % (36.0-47.0); HEMOGLOBIN 12.7 g/dl (12.0-15.5); LYMPH # 1.6 10^3/uL (1.5-5.0); MEAN CORPUSCULAR HEMOGLOBIN 27.4 pg (27.0-33.0); MEAN CORPUSCULAR HGB CONC 32.5 g/dl (32.0-36.5); MEAN CORPUSCULAR VOLUME 84.4 fl (80.0-96.0); MONO # 0.4 10^3/uL (0.0-0.8); MONO % 6.4 % (2.0-8.0); NEUTROPHILS # 3.7 10^3/uL (1.5-8.5); NEUTROPHILS % 59.8 % (36.0-66.0); PLATELET COUNT, AUTOMATED 275 10^3/uL (150-450)
[2021-03-30 20:01] LABS: C REACTIVE PROTEIN QUANTITATIV 0.46 MG/DL (0.00-0.30); RHEUMATOID FACTOR QUANT < 10.0 IU/ML (<15.0); URIC ACID 4.7 MG/DL (2.6-6.0)
[2021-03-30 20:14] LABS: ERYTHROCYTE SEDIMENTATION RATE 9 mm/hr (0-30)
[2021-04-02 14:08] LABS: ANTINUCLEAR ANTIBODIES DIRECT Negative (Negative); Lyme Disease IgG/IgM Antibodie <0.91 ISR (0.00-0.90); Lyme Disease IgM Ab Quantitati <0.80 index (0.00-0.79)
== END ==
LOC: M WUC 15:43
PROVIDERS: ATTEND Physician Assistant
DX: S63.8X2A Sprain of other part of left wrist and hand, initial encounter (principal)

== ENCOUNTER → 2021-06-08 | Outpatient (CLI) | payer OTHER ==
[2021-06-08 16:05] LABS: BASO # 0.1 10^3/uL (0.0-0.2); EOS # 0.4 10^3/uL (0.0-0.5); EOS % 7.9 % (0.0-3.0); HEMATOCRIT 41.3 % (36.0-47.0); HEMOGLOBIN 13.7 g/dl (12.0-15.5); LYMPH # 1.3 10^3/uL (1.5-5.0); LYMPH % 25.1 % (24.0-44.0); MEAN CORPUSCULAR HEMOGLOBIN 27.5 pg (27.0-33.0); MEAN CORPUSCULAR HGB CONC 33.2 g/dl (32.0-36.5); MEAN CORPUSCULAR VOLUME 82.8 fl (80.0-96.0); MONO # 0.3 10^3/uL (0.0-0.8); NEUTROPHILS # 3.1 10^3/uL (1.5-8.5); NEUTROPHILS % 59.6 % (36.0-66.0); PLATELET COUNT, AUTOMATED 251 10^3/uL (150-450); RED BLOOD COUNT 4.99 10^6/uL (4.00-5.40); WHITE BLOOD COUNT 5.2 10^3/uL (4.0-10.0)
[2021-06-08 16:45] LABS: ERYTHROCYTE SEDIMENTATION RATE 9 mm/hr (0-30)
[2021-06-08 16:53] LABS: RHEUMATOID FACTOR QUANT < 10.0 IU/ML (<15.0)
[2021-06-11 17:07] LABS: ANA (HEP2) Negative (.)
== END ==
LOC: M WUC 14:20
PROVIDERS: ATTEND Physician Assistant
DX: M25.50 Pain in unspecified joint (principal)

== ENCOUNTER → 2021-10-02 | Outpatient (REF) | payer OTHER | LOC: M SFHCDERM 14:16 | PROVIDERS: ATTEND Physician Assistant | DX: L57.0 Actinic keratosis (principal) ==

== ENCOUNTER → 2021-10-16 | Outpatient (CLI) | payer OTHER ==
[2021-10-16 13:05] LABS: BASO # 0.1 10^3/uL (0.0-0.2); BASO % 1.4 % (0.0-1.0); EOS # 0.3 10^3/uL (0.0-0.5); EOS % 5.7 % (0.0-3.0); HEMATOCRIT 43.2 % (36.0-47.0); HEMOGLOBIN 14.1 g/dl (12.0-15.5); LYMPH # 1.2 10^3/uL (1.5-5.0); LYMPH % 23.2 % (24.0-44.0); MEAN CORPUSCULAR HEMOGLOBIN 27.1 pg (27.0-33.0); MEAN CORPUSCULAR HGB CONC 32.6 g/dl (32.0-36.5); MEAN CORPUSCULAR VOLUME 83.1 fl (80.0-96.0); MONO # 0.4 10^3/uL (0.0-0.8); MONO % 7.5 % (2.0-8.0); NEUTROPHILS # 3.1 10^3/uL (1.5-8.5); NEUTROPHILS % 61.6 % (36.0-66.0); PLATELET COUNT, AUTOMATED 264 10^3/uL (150-450)
[2021-10-16 13:43] LABS: ALT/SGPT 16 U/L (12-78); BLOOD UREA NITROGEN 12 MG/DL (7-18); CALCIUM LEVEL 8.8 MG/DL (8.5-10.1); CARBON DIOXIDE LEVEL 30 MEQ/L (21-32); CHLORIDE LEVEL 104 MEQ/L (98-107); CHOLESTEROL LEVEL 208 MG/DL (<200); CHOLESTEROL RISK RATIO 3.466 (<5); CREATININE FOR GFR 0.71 MG/DL (0.55-1.30); FREE T4 1.11 NG/DL (0.76-1.46); GLOMERULAR FILTRATION RATE > 60.0 (>51); GLUCOSE, FASTING 86 MG/DL (70-100); HDL CHOLESTEROL 60 MG/DL (>40); LDL CHOLESTEROL 131 MG/DL (<100); NON-HDL-C 148 MG/DL; POTASSIUM SERUM 4.7 MEQ/L (3.5-5.1); SODIUM LEVEL 139 MEQ/L (136-145); THYROID STIMULATING HORMONE 0.699 uIU/ML (0.358-3.740); TOTAL PROTEIN 6.4 GM/DL (6.4-8.2); TRIGLYCERIDES LEVEL 86 MG/DL (<150)
[2021-10-16 14:00] LABS: TOTAL 25(OH) VITAMIN D 39.2 NG/ML (30.0-100.0)
[2021-10-16 14:51] LABS: ERYTHROCYTE SEDIMENTATION RATE 8 mm/hr (0-30)
== END ==
LOC: M WUC 09:59
PROVIDERS: ATTEND Nurse Practitioner Adult Health
DX: M15.0 Primary generalized (osteo)arthritis (principal); F41.1 Generalized anxiety disorder; Z13.220 Encounter for screening for lipoid disorders; Z13.228 Encounter for screening for other metabolic disorders; Z13.29 Encounter for screening for other suspected endocrine disorder

== ENCOUNTER → 2021-10-29 | Outpatient (CLI) | payer OTHER | LOC: M CARPUL 09:11 | PROVIDERS: ATTEND Nurse Practitioner Adult Health | DX: R01.1 Cardiac murmur, unspecified (principal) ==

== ENCOUNTER → 2022-03-20 | Outpatient (CLI) | payer OTHER | LOC: M WHC 16:29 | PROVIDERS: ATTEND Family Medicine | DX: Z12.31 Encounter for screening mammogram for malignant neoplasm of breast (principal) ==

== ENCOUNTER → 2022-04-18 | Outpatient (CLI) | payer OTHER ==
[2022-04-18 11:52] LABS: BASO # 0.1 10^3/uL (0.0-0.2); BASO % 1.4 % (0.0-1.0); EOS # 0.3 10^3/uL (0.0-0.5); EOS % 6.9 % (0.0-3.0); HEMATOCRIT 41.9 % (36.0-47.0); LYMPH # 1.2 10^3/uL (1.5-5.0); MEAN CORPUSCULAR HEMOGLOBIN 27.8 pg (27.0-33.0); MEAN CORPUSCULAR HGB CONC 33.4 g/dl (32.0-36.5); MEAN CORPUSCULAR VOLUME 83.3 fl (80.0-96.0); MONO # 0.3 10^3/uL (0.0-0.8); MONO % 7.8 % (2.0-8.0); NEUTROPHILS # 2.3 10^3/uL (1.5-8.5); NEUTROPHILS % 54.4 % (36.0-66.0); PLATELET COUNT, AUTOMATED 257 10^3/uL (150-450); RED BLOOD COUNT 5.03 10^6/uL (4.00-5.40); WHITE BLOOD COUNT 4.2 10^3/uL (4.0-10.0)
[2022-04-18 12:13] LABS: ALBUMIN 4.2 G/DL (3.2-5.2); ALKALINE PHOSPHATASE 73 U/L (46-116); ALT/SGPT 24 U/L (7.0-40); AST/SGOT 23 U/L (<34); BLOOD UREA NITROGEN 17 MG/DL (9-23); CALCIUM LEVEL 9.2 MG/DL (8.5-10.1); CARBON DIOXIDE LEVEL 30 MMOL/L (20-31); CHLORIDE LEVEL 102 MMOL/L (98-107); CHOLESTEROL LEVEL 212 MG/DL (<200); CHOLESTEROL RISK RATIO 3.48 (<5); CREATININE FOR GFR 0.67 MG/DL (0.55-1.30); GLOMERULAR FILTRATION RATE > 60.0 (>51); GLUCOSE, FASTING 79 MG/DL (60-100); HDL CHOLESTEROL 60.9 MG/DL (>40); LDL CHOLESTEROL 131.3 MG/DL (<100); NON-HDL-C 151 MG/DL; POTASSIUM SERUM 5.1 MMOL/L (3.5-5.1); SODIUM LEVEL 138 MMOL/L (136-145); THYROID STIMULATING HORMONE 0.895 uIU/ML (0.55-4.78); TOTAL PROTEIN 6.5 G/DL (5.7-8.2); TRIGLYCERIDES LEVEL 99 MG/DL (<150)
== END ==
LOC: M PLALAB 08:40
PROVIDERS: ATTEND Family Medicine
DX: Z13.220 Encounter for screening for lipoid disorders (principal)

== ENCOUNTER → 2022-07-29 | Outpatient (CLI) | payer OTHER ==
[2022-07-29 10:59] LABS: BASO # 0.1 10^3/uL (0.0-0.2); BASO % 1.1 % (0.0-1.0); EOS # 0.3 10^3/uL (0.0-0.5); EOS % 5.7 % (0.0-3.0); HEMATOCRIT 42.7 % (36.0-47.0); HEMOGLOBIN 13.8 g/dl (12.0-15.5); LYMPH # 1.3 10^3/uL (1.5-5.0); LYMPH % 26.8 % (24.0-44.0); MEAN CORPUSCULAR HEMOGLOBIN 27.1 pg (27.0-33.0); MEAN CORPUSCULAR HGB CONC 32.3 g/dl (32.0-36.5); MEAN CORPUSCULAR VOLUME 83.7 fl (80.0-96.0); MONO # 0.3 10^3/uL (0.0-0.8); MONO % 6.8 % (2.0-8.0); NEUTROPHILS # 2.8 10^3/uL (1.5-8.5); NEUTROPHILS % 58.5 % (36.0-66.0); PLATELET COUNT, AUTOMATED 254 10^3/uL (150-450); WHITE BLOOD COUNT 4.7 10^3/uL (4.0-10.0)
[2022-07-29 11:25] LABS: ALBUMIN 3.8 G/DL (3.2-5.2); ALKALINE PHOSPHATASE 78 U/L (46-116); ALT/SGPT 21 U/L (7.0-40); AST/SGOT 18 U/L (<34); BILIRUBIN,TOTAL 0.7 MG/DL (0.3-1.2); BLOOD UREA NITROGEN 11 MG/DL (9-23); CALCIUM LEVEL 8.7 MG/DL (8.5-10.1); CARBON DIOXIDE LEVEL 31 MMOL/L (20-31); CHLORIDE LEVEL 104 MMOL/L (98-107); CHOLESTEROL LEVEL 217 MG/DL (<200); CHOLESTEROL RISK RATIO 3.93 (<5); CREATININE FOR GFR 0.62 MG/DL (0.55-1.30); GLOMERULAR FILTRATION RATE > 60.0 (>51); GLUCOSE, FASTING 76 MG/DL (60-100); HDL CHOLESTEROL 55.1 MG/DL (>40); LDL CHOLESTEROL 130.3 MG/DL (<100); NON-HDL-C 161.9 MG/DL; POTASSIUM SERUM 4.7 MMOL/L (3.5-5.1); SODIUM LEVEL 139 MMOL/L (136-145); TRIGLYCERIDES LEVEL 158 MG/DL (<150)
[2022-07-29 11:27] LABS: FREE T4 1.03 NG/DL (0.89-1.76)
== END ==
LOC: M PLALAB 08:45
PROVIDERS: ATTEND Family Medicine
DX: Z13.220 Encounter for screening for lipoid disorders (principal)

== ENCOUNTER → 2022-08-28 | Outpatient (REF) | payer OTHER | LOC: M SFHCDERM 18:14 | PROVIDERS: ATTEND Physician Assistant | DX: D23.70 Other benign neoplasm of skin of unspecified lower limb, including hip (principal) ==

== ENCOUNTER → 2023-03-21 | Outpatient (CLI) | payer OTHER | LOC: M WHC 13:05 | PROVIDERS: ATTEND Advanced Practice Midwife | DX: Z12.31 Encounter for screening mammogram for malignant neoplasm of breast (principal) ==

== ENCOUNTER → 2023-05-16 | Outpatient (CLI) | payer OTHER ==
[2023-05-16 18:21] LABS: BASO # 0.1 10^3/uL (0.0-0.2); BASO % 0.9 % (0.0-1.0); EOS # 0.3 10^3/uL (0.0-0.5); EOS % 5.5 % (0.0-3.0); HEMATOCRIT 39.9 % (36.0-47.0); HEMOGLOBIN 13.3 g/dl (12.0-15.5); LYMPH # 1.5 10^3/uL (1.5-5.0); LYMPH % 27.7 % (24.0-44.0); MEAN CORPUSCULAR HEMOGLOBIN 27.3 pg (27.0-33.0); MEAN CORPUSCULAR HGB CONC 33.3 g/dl (32.0-36.5); MEAN CORPUSCULAR VOLUME 81.9 fl (80.0-96.0); MONO # 0.4 10^3/uL (0.0-0.8); MONO % 7.8 % (2.0-8.0); NEUTROPHILS # 3.1 10^3/uL (1.5-8.5); NEUTROPHILS % 57.7 % (36.0-66.0); PLATELET COUNT, AUTOMATED 263 10^3/uL (150-450); RED BLOOD COUNT 4.87 10^6/uL (4.00-5.40); WHITE BLOOD COUNT 5.4 10^3/uL (4.0-10.0)
[2023-05-16 18:48] LABS: BLOOD UREA NITROGEN 15 MG/DL (9-23); CALCIUM LEVEL 9.2 MG/DL (8.5-10.1); CARBON DIOXIDE LEVEL 28 MMOL/L (20-31); CHLORIDE LEVEL 107 MMOL/L (98-107); CREATININE FOR GFR 0.69 MG/DL (0.55-1.30); GLOMERULAR FILTRATION RATE > 60.0 (>51); GLUCOSE, FASTING 114 MG/DL (60-100); POTASSIUM SERUM 4.3 MMOL/L (3.5-5.1); SODIUM LEVEL 133 MMOL/L (136-145)
== END ==
LOC: M PLALAB 16:13
PROVIDERS: ATTEND Family Medicine
DX: Z01.818 Encounter for other preprocedural examination (principal)

== ENCOUNTER → 2023-08-15 | Outpatient (CLI) | payer OTHER | LOC: M PLARAD 10:13 | PROVIDERS: ATTEND Family Medicine | DX: M50.10 Cervical disc disorder with radiculopathy, unspecified cervical region (principal) ==

== ENCOUNTER → 2024-03-26 | Outpatient (CLI) | payer OTHER ==
[~2024-03-26] MED LIST changes: +FLUO-365 PO; -FLUO20CA22 PO
== END ==
LOC: M WHC 12:57
PROVIDERS: ATTEND Advanced Practice Midwife
DX: Z12.31 Encounter for screening mammogram for malignant neoplasm of breast (principal)

== ENCOUNTER → 2024-04-19 | Outpatient (CLI) | payer OTHER | LOC: M WHC 10:44 | PROVIDERS: ATTEND Advanced Practice Midwife | DX: Z30.431 Encounter for routine checking of intrauterine contraceptive device (principal) ==

== ENCOUNTER → 2024-04-29 | Outpatient (REF) | payer OTHER | LOC: M LAB REF 17:06 | PROVIDERS: ATTEND Physician Assistant | DX: J02.9 Acute pharyngitis, unspecified (principal) ==

== ENCOUNTER → 2024-08-12 | Outpatient (CLI) | payer OTHER | LOC: M PLAIMG 14:53 | PROVIDERS: ATTEND Nurse Practitioner Adult Health | DX: D48.7 Neoplasm of uncertain behavior of other specified sites (principal) ==

== ENCOUNTER → 2025-02-23 | Outpatient (REF) | payer OTHER ==
[~2025-02-23] MED LIST changes: -IBUP-1022 PO; +IBUP600T42 PO
== END ==
LOC: M SFHCDERM 17:29
PROVIDERS: ATTEND Physician Assistant
DX: D48.5 Neoplasm of uncertain behavior of skin (principal)